=== PATIENT | female | born 1945 | race Caucasian/White ===

== ENCOUNTER → 2016-04-11 | Outpatient (CLI) | payer MEDICARE, BC ==
[~2016-04-11] MED LIST: ASPIRIN PO; ATORVASTATIN CA10 MG PO; AUGMENTIN PO; CENTRUM PO; COLESTID1 GM; EVISTA60 M1 PO; FERROUS SULFAT324 MG PO; HYZAAR 100-12.1 EACH PO; KEFLEX500 MG PO; LANSOPRAZOLE30 M2; LEVOXYL150 MC1 PO; LIPITOR PO; LO-DOSE ASPIRIN81 M1 PO; LOMOTIL WHITE2.5 M1; LORTAB 5-325 M1 EACH PO; LOSARTAN-HCTZ1 EAC1 PO; METFORMIN HCL500 M4 PO; METFORMIN PO; PAROXETINE HCL20 M1 PO; PAROXETINE HCL20 MG PO; PREMARIN VAGINAL; SYNTHROID PO; TOPAMAX PO; TOPIRAMATE25 M1 PO; TOPROL XL PO; TOPROL XL50 MG PO; TYLENOL #3; VIT D PO; VITAMIN B122500 MCG PO; VITAMIN D31000 UNIT PO
--- NOTE | ~2016-04-11 | XA51 ---
[facility] A Service of [facility] RADIOLOGY TEXT RESULTS PATIENT: CATINA MCMAHAN LOCATION: [facility] : 43 UNIT #: [id number] AGE: [address]: Alondra Santoro MD SEX: F ORDER DR: [id number] [facility] [address] [place], [place] [address] [id number] O MR#: [id number] Acc #: [id number] NAME: CATINA MCMAHAN : 1945 SEX: F STUDY DATE/TIME: 04/11/2016 9:21 UNIT: [facility] ROOM: STUDY DESCRIPTION: XA BX Bone Marrow Attending Physician: Alondra Santoro M.D., Ph.D. Ordering Physician: Alondra Santoro M.D., Ph.D. Primary Care Physician: García Tracey M.D. MEDICAL IMAGING REPORT This report is preliminary unless electronic signature is present EXAM Bone marrow aspiration biopsy HISTORY Anemia and splenomegaly. TECHNIQUE Procedure was explained to the patient including risks, benefits and complications. Informed consent was obtained and a formal time-out procedure was utilized. Conscious sedation was employed with intravenous Versed and Fentanyl that was administered by nursing who was present and monitoring the patient during the examination. Using sterile technique and following local anesthesia with 1% Xylocaine, a bone trocar was placed into the right iliac bone under fluoroscopic guidance. Total fluoroscopy time 0.1 minutes with a total dose of 21 mGy. Bone marrow aspiration was performed, followed by a core. Samples appeared to be adequate. The aspirate was placed in appropriately colored and labeled test tubes. The patient tolerated the procedure well. IMPRESSION Technically successful bone marrow aspiration and biopsy. Dictated by... Enmanuel Arthur M.D. THIS IS AN ELECTRONICALLY VERIFIED REPORT Enmanuel Arthur M.D. at 04/12/2016 8:39 AM RLF/justo [facility] A Service [facility] RADIOLOGY TEXT RESULTS PATIENT: CATINA MCMAHAN [id number] 43 UNIT #: [id number] AGE: [address]: Alondra Santoro MD SEX: F ORDER DR: TD: 04/11/2016 20:22 JOB #: [id number] MEDICAL IMAGING REPORT COPY
[2016-04-11 07:53] LABS: HEMATOCRIT 32.5 % (35.0-45.0); HEMOGLOBIN 10.6 gm/dL (12.0-16.0); MEAN CELL VOLUME 80.2 FL (83-96); MEAN CORPUSCULAR HGB CONC 32.4 g/dL (30-36); MEAN PLATELET VOLUME 7.2 FL (6.5-11.5); RED BLOOD COUNT 4.06 X10e (3.90-5.30); RED CELL DISTRIBUTION WIDTH 15.1 % (11.0-15.5); WHITE BLOOD COUNT 47.6 X10e3 (4.0-10.5)
[2016-04-11 08:04] LABS: PARTIAL THROMBOPLASTIN TIME 25.9 SECONDS (23.5-31.3); PROTHROMBIN TIME (PATIENT) 10.6 SECONDS (9.6-11.5)
== END | disposition home or self-care (01) ==
LOC: CIVR 07:18
PROVIDERS: Internal Medicine Hematology & Oncology
PROC: 07DR3ZX Extraction of Iliac Bone Marrow, Percutaneous Approach, Diagnostic (ICD-10-PCS; principal; 2016-04-11)
PROC: 079T3ZX Drainage of Bone Marrow, Percutaneous Approach, Diagnostic (ICD-10-PCS; 2016-04-11)
DX: C83.18 Mantle cell lymphoma, lymph nodes of multiple sites (principal); R11.0 Nausea; D64.9 Anemia, unspecified; E11.9 Type 2 diabetes mellitus without complications; Z79.84 Long term (current) use of oral hypoglycemic drugs; E78.5 Hyperlipidemia, unspecified; E03.9 Hypothyroidism, unspecified; I34.1 Nonrheumatic mitral (valve) prolapse; R19.7 Diarrhea, unspecified; R25.2 Cramp and spasm; Z79.82 Long term (current) use of aspirin; Z79.899 Other long term (current) drug therapy; Z80.51 Family history of malignant neoplasm of kidney; Z80.0 Family history of malignant neoplasm of digestive organs; Z88.5 Allergy status to narcotic agent
CPT/HCPCS: 38221; G0364; 36415; 77002; 85027; 85610; 85730; 88237; 88264; 88271; 88275; 88305; 88311; 88313; 99144; 99152; 99153; J2250; J3010

== ENCOUNTER → 2016-05-21 | Outpatient (CLI) | payer MEDICARE, BC ==
--- NOTE | ~2016-05-21 | XA91 ---
[facility] A Service of [facility] & [facility] RADIOLOGY TEXT RESULTS PATIENT: CATINA MCMAHAN LOCATION: [facility] : 43 UNIT #: [id number] AGE: [address]: Tom Bolanos MD SEX: F ORDER DR: [id number] [facility] [address] [place], [place] [address] [id number] O MR#: [id number] Acc #: [id number] NAME: CATINA MCMAHAN. : 1945 SEX: F STUDY DATE/TIME: 05/21/2016 8:10 UNIT: [facility] ROOM: STUDY DESCRIPTION: XA CVC Tunneled W Port Attending Physician: Tom Bolanos M.D. Ordering Physician: Tom Bolanos M.D. Primary Care Physician: García Tracey M.D. MEDICAL IMAGING REPORT This report is preliminary unless electronic signature is present EXAM Medi-Port placement. INDICATION Mantle cell lymphoma. Patient was diagnosed April 11, 2016. PROCEDURE The procedure was explained to the patient, including risks, benefits and potential complications and potential for alterative forms of treatment. Informed consent was obtained prior to initiating the procedure. Formal time-out procedure was performed. Using all elements of maximal sterile barrier technique, including hand hygiene, caps, sterile gowns, gloves, and masks, the right neck and chest were prepped with 2% Chlorhexidine percutaneous antisepsis and covered with a large sterile sheet. Real-time sterile ultrasound guidance was used to localize the right internal jugular vein, which was found be patent and compressible. Hard copy ultrasound image was obtained, and local anesthesia with 1% Xylocaine, the vein was punctured, using real-time sterile ultrasound guidance, and an 0.018 guidewire was advanced into the superior vena cava under fluoroscopic guidance. Micropuncture sheath was advanced over the wire, and J-wire was advanced into the inferior vena cava. The skin and subcutaneous tissues of the right anterolateral chest wall were anesthetized with buffered lidocaine and lidocaine with epinephrine. A small skin incision was made, and a port pocket was created using a combination of blunt and sharp dissection. Port was seated within the pocket and secured using 2 3-0 Vicryl sutures. The catheter was then tunneled up through the right anterolateral chest wall to the insertion site at the neck. Peel-away sheath was advanced over the wire, catheter was measured and trimmed and was advanced through the peel-away sheath and positioned within the superior vena cava. Upon placement of the catheter, it flushed and aspirated easily. Deep layer of the port pocket was closed using interrupted 3-0 Vicryl sutures in a [facility] A Service of [facility] RADIOLOGY TEXT RESULTS PATIENT: CATINA MCMAHAN LOCATION: [facility] : 43 UNIT #: [id number] AGE: [address]: Tom Bolanos MD SEX: F ORDER DR: running 4-0 Monocryl suture was used to close the skin. Dermabond was applied to both wounds to act as a dressing. Total fluoroscopy time was 0.1 minutes. AK was 1 mGy. Patient, did receive conscious sedation consisting of Versed and Fentanyl, and a total of 55 minutes of continuous monitoring was provided by the IVR nurse. IMPRESSION Technically successful right internal jugular vein Medi-Port placement. This catheters is ready for immediate use. Ultrasound and fluoroscopy were used during placement of the catheter, and permanent images were saved. Dictated by... Neva Machuca M.D. THIS IS AN ELECTRONICALLY VERIFIED REPORT Neva Machuca M.D. at 05/24/2016 12:59 PM AFF/js TD: 05/23/2016 18:42 JOB #: [id number] MEDICAL IMAGING REPORT Page 1 of 1 COPY
[2016-05-21 07:06] LABS: HEMATOCRIT 33.8 % (35.0-45.0); HEMOGLOBIN 10.4 gm/dL (12.0-16.0); MEAN CELL VOLUME 82.1 FL (83-96); MEAN CORPUSCULAR HEMOGLOBIN 25.3 PG (28-34); MEAN CORPUSCULAR HGB CONC 30.9 g/dL (30-36); MEAN PLATELET VOLUME 7.1 FL (6.5-11.5); RED BLOOD COUNT 4.12 X10e (3.90-5.30); RED CELL DISTRIBUTION WIDTH 15.3 % (11.0-15.5)
[2016-05-21 07:43] LABS: PARTIAL THROMBOPLASTIN TIME 26.4 SECONDS (23.5-31.3); PROTHROMBIN TIME (PATIENT) 10.3 SECONDS (9.6-11.5)
== END | disposition home or self-care (01) ==
LOC: CIVR 06:29
PROVIDERS: Internal Medicine Hematology & Oncology
PROC: 05HM33Z Insertion of Infusion Device into Right Internal Jugular Vein, Percutaneous Approach (ICD-10-PCS; principal; 2016-05-21)
DX: Z45.2 Encounter for adjustment and management of vascular access device (principal); C83.18 Mantle cell lymphoma, lymph nodes of multiple sites; R11.0 Nausea; D64.9 Anemia, unspecified; D50.8 Other iron deficiency anemias; E11.9 Type 2 diabetes mellitus without complications; Z79.84 Long term (current) use of oral hypoglycemic drugs; I34.1 Nonrheumatic mitral (valve) prolapse; E78.5 Hyperlipidemia, unspecified; E03.9 Hypothyroidism, unspecified; R25.2 Cramp and spasm; Z79.899 Other long term (current) drug therapy; Z79.82 Long term (current) use of aspirin; Z80.51 Family history of malignant neoplasm of kidney; Z80.0 Family history of malignant neoplasm of digestive organs; Z88.5 Allergy status to narcotic agent
CPT/HCPCS: 36415; 76937; 77001; 85027; 85610; 85730; C1788; C1894; J0690; J1642; J2250; J3010

== ENCOUNTER → 2016-08-09 | Outpatient (CLI) | payer MEDICARE, BC ==
--- NOTE | ~2016-08-09 | CR7 ---
[facility] A Service of [facility] & [facility] RADIOLOGY TEXT RESULTS PATIENT: CATINA MCMAHAN LOCATION: [facility] : 43 UNIT #: [id number] AGE: [address]: JOIE CARTER APRN SEX: F ORDER DR: [id number] [facility] [address] [place], [place] [address] [id number] O MR#: [id number] Acc #: [id number] NAME: CATINA MCMAHAN. : 1945 SEX: F STUDY DATE/TIME: 08/09/2016 15:06 UNIT: [facility] ROOM: STUDY DESCRIPTION: CR Abdomen Single AP View Attending Physician: Joie Carter Aprn Referring Physician: Joie Carter Aprn Ordering Physician: Joie Carter Aprn Primary Care Physician: García Tracey M.D. MEDICAL IMAGING REPORT This report is preliminary unless electronic signature is present EXAM AP abdomen INDICATION Persistent diarrhea for [address] of the abdomen and pelvis from 03/23/2016 FINDINGS Bowel gas pattern is nonobstructed. Right upper quadrant surgical clips. Degenerative changes of the lumbar spine. IMPRESSION Nonobstructed bowel gas pattern. No dilated loops of bowel. Dictated by... Lam Lyman M.D. THIS IS AN ELECTRONICALLY VERIFIED REPORT Lam Lyman M.D. at 08/10/2016 10:01 AM SNOW/giovany TD: 08/10/2016 01:59 JOB #: [id number] MEDICAL IMAGING REPORT Page 1 of 1 COPY
== END | disposition home or self-care (01) ==
LOC: CRAD 14:51
DX: K52.9 Noninfective gastroenteritis and colitis, unspecified (principal)
CPT/HCPCS: 74000

== ENCOUNTER → 2016-09-11 | Day surgery (SDC) | payer MEDICARE, BC ==
--- NOTE | ~2016-09-11 | OR ---
Unit #: [id number] #: [id number] Patient: CATINA MCMAHAN [id number] [address] [address] [id number] O MR#: [id number] NAME: CATINA MCMAHAN ROOM: Date of Procedure: 09/11/2016 Admission Date: 09/11/2016 Surgeon: Blake Rodriguez M.D. : 1945 Attending Physician: Blake Rodriguez M.D. Primary Care Physician: García Tracey M.D. OPERATIVE REPORT PRIMARY CARE PHYSICIAN García Tracey M.D. PREOPERATIVE DIAGNOSES The patient has history of diarrhea, fecal incontinence, and some weight loss. She has [place] and [place] ancestry. PROCEDURES PERFORMED Upper gastrointestinal endoscopy and biopsy as well as colonoscopy with biopsies. POSTOPERATIVE DIAGNOSES FOR UPPER ENDOSCOPY 1. The patient had grade 2 distal erosive esophagitis. 2. There was mild prepyloric antral erosive gastritis. 3. Rest of the examination up to third part of duodenum was normal. A biopsy obtained from the antrum for CLOtest. In addition, biopsies were also obtained from deep descending duodenal folds to look for any evidence of partial villous atrophy or celiac disease. POSTOPERATIVE DIAGNOSES FOR COLONOSCOPY Completely normal examination up to cecum and terminal ileum. The quality of the prep was excellent. No polyps, diverticula, or hemorrhoids were seen. Multiple random colonic biopsies were obtained from throughout the colon to rule out microscopic or collagenous colitis. RECOMMENDATIONS 1. The patient being started on lansoprazole 30 mg p.o. daily. 2. Colestid 1 g p.o. t.i.d. to be used on a regular basis and to skip in case of any constipation. 3. Lomotil 2.5 mg p.o. p.r.n. diarrhea to be used sparingly only occasionally. 4. The patient will be followed up in the office in 3 months' time. SEDATION USED MAC. DESCRIPTION OF PROCEDURE Following detailed explanation of the potential risks and complications of an upper endoscopy and a colonoscopy, namely perforation, bleeding, and complication related to sedation, the patient was brought to GI lab and laid in the left lateral decubitus position. Lubricated tip of the Olympus video upper endoscope was passed through the bite block into the Unit #: [id number] #: [id number] Patient: CATINA MCMAHAN proximal esophagus under direct vision. The entire esophageal mucosa was examined. The patient was noted to have moderate distal erosive esophagitis, erosions ascending above the Z-line in the distal esophagus. The scope was then advanced into the gastric cavity and the latter was insufflated. Mucosa of the fundus, body, and antrum were examined and mild prepyloric antral erythema erosions noted indicating antral gastritis. Pylorus was intubated with visualization of the normal duodenal bulb and second and third part of the duodenum. Biopsies were obtained from deep descending duodenal folds to look for any evidence of partial villous atrophy or celiac disease. Upon withdrawal and retroflexion, incisura, cardia, and greater curve were examined and biopsy obtained from the antrum for CLOtest. The scope was withdrawn from the distal esophagus. The entire esophageal mucosa was examined all the way up to pharynx. No additional findings noted. The examination table was then turned by 180 degrees and the patient was positioned for a colonoscopy. A digital rectal examination was performed, which was normal. Lubricated tip of the Olympus video colonoscope was inserted through the anus and advanced under direct vision. The scope was advanced and passed up to sigmoid into descending colon. No diverticula were noted in this area. The scope was then navigated all the way up to cecum with visualization of the ileocecal wall and the appendiceal orifice. Preparation was excellent with good visualization and photodocumentation was obtained. Last several inches of terminal ileum also visualized after intubation of the ileocecal valve and appeared normal. Successive segments of the colonic mucosa were examined upon withdrawal and appeared unremarkable. There were being no polyps, mass lesions, AVMs, or diverticula. The patient did not have any hemorrhoids at anal verge. Multiple random colonic biopsies were obtained from throughout the colon to rule out microscopic or collagenous colitis. The scope was then withdrawn and the patient returned to the recovery area. She tolerated the procedure without any postprocedure complications. Dictated by... Kerry Cardoso TD: 09/11/2016 09:13 JOB #: [id number] Tom Bolanos M.D. OPERATIVE REPORT Page 1 of 1 X Blake Rodriguez MD PROCEDURE OPERATIVE NOTE
== END | disposition home or self-care (01) ==
LOC: COPS 06:29
DX: K52.9 Noninfective gastroenteritis and colitis, unspecified (principal); K29.80 Duodenitis without bleeding; K20.9 Esophagitis, unspecified; K29.70 Gastritis, unspecified, without bleeding; E11.9 Type 2 diabetes mellitus without complications; E03.9 Hypothyroidism, unspecified; Z88.8 Allergy status to other drugs, medicaments and biological substances; Z79.84 Long term (current) use of oral hypoglycemic drugs; Z79.82 Long term (current) use of aspirin; Z79.899 Other long term (current) drug therapy; Z90.710 Acquired absence of both cervix and uterus; Z98.51 Tubal ligation status; Z90.49 Acquired absence of other specified parts of digestive tract; Z90.721 Acquired absence of ovaries, unilateral; Z96.652 Presence of left artificial knee joint; Z98.41 Cataract extraction status, right eye; Z98.42 Cataract extraction status, left eye; Z98.890 Other specified postprocedural states
CPT/HCPCS: 82947; 83516; 84443; 87077; 88305; J2250